=== PATIENT | female | born 1950 | race Caucasian/White ===

== ENCOUNTER 2024-06-23 09:27 | Emergency (ER) | payer MEDICARE, OTHER, SELFPAY ==
[2024-06-23 09:35] VITALS: BP 151/60
[2024-06-23 10:09] LABS: % Basophils 0.8 % (0-2); % Eosinophils 2.4 % (0-6); % Immature Granulocytes 0.1 % (0-0.5); % Lymphocytes 24.5 % (20.5-51.1); % Neutrophils 63.2 % (42.2-75.2); Absolute Basophils 0.1 10^3/uL (0-0.2); Absolute Eosinophils 0.2 10^3/uL (0-0.7); Absolute Lymphocytes 2.2 10^3/uL (1.2-3.4); Absolute Monocytes 0.8 10^3/uL (0.1-0.6); Absolute Neutrophils 5.5 10^3/uL (1.4-6.5); Hemoglobin 14.6 g/dL (12.0-16.0); Mean Corp Hgb Conc. 32.4 g/dL (33.0-37.0); Mean Corpuscular Hgb 29.5 pg (27.0-31.0); Mean Corpuscular Volume 90.9 fL (81.0-99.0); Mean Platelet Volume 11.3 fL (7.4-10.4); Nucleated Red Blood Cells % 0 %; Platelet Count 252 10^3/uL (130-400); Red Blood Cell Count 4.95 10^6/uL (4.20-5.40); White Blood Cell Count 8.8 10^3/uL (4.8-10.8)
[2024-06-23 10:16] LABS: ALT (SGPT) 24 U/L (0-35); AST (SGOT) 31 U/L (14-36); Albumin 4.1 g/dl (3.5-5.0); Alkaline Phosphatase 106 U/L (38-126); Blood Urea Nitrogen 24 mg/dl (7-17); Calcium 9.8 mg/dl (8.4-10.2); Carbon Dioxide 27 mmol/L (22-30); Chloride 106 mmol/L (98-107); Glucose 189 mg/dl (70-99); Lipase 73 U/L (23-300); Sodium 141 mmol/L (135-145); Total Bilirubin 0.9 mg/dl (0.2-1.3); Total Protein 6.9 g/dl (6.3-8.2); eGFR > 60.00
--- NOTE | 2024-06-23 11:16 | ED.GENMED ---
History of Present Illness
General
Chief Complaint: Bowel Problem
Source: patient
Exam Limitations: none
Time Seen by Provider: 06/23/24 11:11
Nursing documentation reviewed up to this point in time: agreed with
History of Present Illness
History of Present Illness:
Patient is a 74-year-old female who complains of constipation for the past month. She reports she has not had a good solid bowel movement for 1 month. She has been taking laxatives magnesium citrate, MiraLAX Colace and even enemas and had little
bits of stool at a time. She was nauseous last night and this morning she denies any vomiting. She had a normal outpatient x-ray at urgent care 10 days ago. She has not seen her family doctor. She had a colonoscopy but years ago and has been
using Cologuard since. She denies any unintended weight loss.
Past History
Past History
ED Past Medical History: None
ED Past Surgical History: None
Social History
Tobacco: Non-smoker
Personal:
Living: with family
Employment: Employed
Review of Systems
Review of Systems
Allergies reviewed?: Yes
All Other Systems: ROS reviewed and negative except as documented in HPI and ROS
Constitutional: Reports no symptoms; Denies fever, fatigue or chills
Respiratory: Reports no symptoms
Cardiac: Reports no symptoms
ABD/GI: Reports abdominal pain, nausea and constipated; Denies vomiting or diarrhea
: Reports no symptoms
Musculoskeletal: Reports no symptoms
Skin: Reports no symptoms
Neurological: Reports no symptoms
Psychiatric: Reports no symptoms
Phy Exam
General Physical Exam
General Presentation: no apparent distress
General age: appears stated age
General Skin: warm and dry
General Habitus: normal
General Mental: alert
General Hydration: appears well hydrated
Gastrointestinal Exam
Gastrointestinal Exam: normal bowel sounds, non tender, soft and other (Recta: No stool in vault )
Neurological Exam
Neurological Exam: alert and oriented x3
Musculoskeletal Exam
Musculoskeletal Exam: full ROM
Skin Exam
Skin Exam: normal color and warm/dry
Psychiatric Exam
Psychiatric Exam: normal mood/affect
Course
Orders/Labs/Results
Orders:
Orders
06/23/24 09:47
Complete Blood Count/With Diff Urgent
Comprehensive Metabolic Panel Urgent
Lipase Urgent
06/23/24 11:19
CT Abd/Pel (IV only)-DH only Urgent
Comment:
Reason For Exam: abd pain/constipation
Abnormal Lab Results
06/23/24
09:47
MCHC 32.4 L g/dL
(33.0-37.0)
MPV 11.3 H fL
(7.4-10.4)
Absolute Monos (auto) 0.8 H 10^3/uL
(0.1-0.6)
BUN 24 H mg/dl
(7-17)
Glucose 189 H mg/dl
(70-99)
06/23/24 09:47
06/23/24 09:47
Vital Signs
Initial and Last Documented VS:
Initial Vital Signs
Temp Pulse Resp BP Pulse Ox
98.3 F 64 16 151/60 100
06/23/24 09:35 06/23/24 09:35 06/23/24 09:35 06/23/24 09:35 06/23/24 09:35
Last Documented Vital Signs
Temp Pulse Resp BP Pulse Ox
98.3 F 64 16 151/60 100
06/23/24 09:35 06/23/24 09:35 06/23/24 09:35 06/23/24 09:35 06/23/24 09:35
MDM/Problems Addressed
Differential Diagnosis Includes:
not limited to:
MDM/Problems Addressed:
As documented patient is a 74-year-old female who presents with constipation for the past month despite laxatives mag citrate MiraLAX and enemas along with stool softener. Patient presents awake alert no acute distress she was nauseous but has had
no vomiting. Abdomen soft nontender no stool in rectum her vitals are stable her labs unremarkable(other than sugar being a little elevated); CAT scan reviewed by radiology negative for significant abnormality mild to moderate diffuse colonic stool
burden. As discussed Case reviewed with ED physician will give patient prescription for polyethylene glycol however will beat higher doses as used in a bowel prep for colonoscopy. This was reviewed with pharmacy.
Will place patient on the GI hotline if she is not seeing GI in years.
Discussed importance of close outpatient GI follow-up and to return if any worsening of symptoms.
*Radiology
Radiology exam reviewed: radiology read reviewed
*Pulse Oximetry
Patient hypoxic: no
*Critical Care Note
Total Time (30-74mins, 75-104mins- exclusive of procedures): Not Applicable
ED Attending Note
-
Portions of this chart may have been created with voice recognition software.� Occasional wrong word or��sound alike� substitutions may have occurred due to the inherent limitations of voice recognition software.
Discharge Plan
Departure
Patient Disposition: Home (Routine Discharge)
Date of Disposition: 06/23/24
Time of Disposition: 14:52
Patient with high blood pressure during this ER visit?: Yes
Discharge Problem:
Constipation
Instructions: Constipation, Adult (DC), BLOOD PRESSURE
Prescriptions:
No Action
biotin 10 mg Tablet
10 mg PO DAILY
diltiazem HCl 180 mg Capsule,Extended Release 24 Hr
180 mg PO DAILY
cetirizine 5 mg Tablet
5 mg PO DAILY
triamterene-hydrochlorothiazid 37.5-25 mg Tablet
1 tab PO DAILY
aspirin 81 mg Tablet
81 mg PO DAILY
zolpidem 10 mg Tablet
10 mg PO DAILY
atorvastatin 40 mg tablet
40 mg PO QPM Qty: 90 10RF
clopidogrel [clopidogrel] 75 mg tablet
75 mg PO DAILY Qty: 90 10RF
nitroglycerin [nitroglycerin] 0.4 mg tablet, sublingual
0.4 mg sublingual [id number] PRN (Reason: chest pain) Qty: 25 5RF
Xarelto 15 mg tablet
15 mg PO QPM Qty: 90 5RF
Referrals:
Cristobal Brumfield MD [Active] -
Angelia Jaime DO [Family Provider] -
Activity Restrictions/Additional Instructions:
As discussed please follow-up with family doctor in the next several days. In addition please follow-up with GI. You may receive a phone call from the GI credit front office developer in the next 1 to 2 days however if you do not please give the office a call to
schedule an appointment. Please use prescriptions for polyethylene glycol as prescribed return if any worsening of symptoms. Make sure you increase your water take and fluid intake.
Increase diet high in fiber fresh fruits and vegetables avoiding constipating foods such as bananas.
Interventions
Interventions:
*Risk Screen - Suicide Last Done: 06/23/24 09:35
*General Assessment Last Done: 06/23/24 11:39
*Neglect/Abuse Screening Last Done: 06/23/24 09:35
*ED- Fall Risk Assessment Last Done: 06/23/24 11:39
*ED COVID-19 Vaccine History Last Done: 06/23/24 11:39
XR-Pdfdeo-Ysdukcrnqz Assessment Last Done: 06/23/24 11:39
Discharge Date and Time
Print Language: TAIWANESE
[2024-06-23 11:39] VITALS: BMI 27.1
[2024-06-23 15:05] VITALS: BP 167/77
[2024-06-23] MEDS: GAVILAX 238 GM PO (15:07)
== END 2024-06-23 15:06 | disposition home or self-care (01) ==
LOC: EMR 09:27
PROVIDERS: EMERGENCY PHYSICIAN Student in an Organized Health Care Education/Training Program; FAMILY PHYSICIAN Family Medicine
DX: K59.00 Constipation, unspecified (principal); R11.0 Nausea
CPT/HCPCS: 99284; 74177; 80053; 83690; 85025; Q9967

== ENCOUNTER 2024-08-24 06:26 | Day surgery (SDC) | payer MEDICARE, OTHER, SELFPAY | END 2024-08-24 13:10 | disposition short-term general hospital (02) | LOC: GI 06:26 | PROVIDERS: ATTENDING PHYSICIAN Student in an Organized Health Care Education/Training Program | DX: K59.04 Chronic idiopathic constipation (principal); R19.4 Change in bowel habit; Z80.0 Family history of malignant neoplasm of digestive organs; R94.31 Abnormal electrocardiogram [ECG] [EKG]; Z53.09 Procedure and treatment not carried out because of other contraindication | CPT/HCPCS: 45378; G0378 ==

== ENCOUNTER 2024-08-24 22:58 | Observation (INO) | payer MEDICARE, OTHER, SELFPAY ==
[2024-08-24] VITALS (12 sets, daily range): BP systolic 132–180; BP diastolic 57–107; BMI 26.9
[2024-08-24 13:57] LABS: Hematocrit 41.1 % (37.0-47.0); Hemoglobin 13.8 g/dL (12.0-16.0); Mean Corp Hgb Conc. 33.6 g/dL (33.0-37.0); Mean Corpuscular Volume 88.0 fL (81.0-99.0); Nucleated Red Blood Cells % 0 %; Platelet Count 217 10^3/uL (130-400); Red Cell Dist. Width 13.7 % (11.5-14.5)
[2024-08-24 14:15] LABS: ALT (SGPT) 31 U/L (0-35); AST (SGOT) 35 U/L (14-36); Albumin 4.2 g/dl (3.5-5.0); Alkaline Phosphatase 116 U/L (38-126); Blood Urea Nitrogen 16 mg/dl (7-17); Calcium 9.3 mg/dl (8.4-10.2); Carbon Dioxide 20 mmol/L (22-30); Chloride 111 mmol/L (98-107); Glucose 98 mg/dl (70-99); Magnesium 2.0 mg/dl (1.6-2.3); Potassium 3.0 mmol/L (3.5-5.1); Sodium 142 mmol/L (135-145); Total Protein 7.0 g/dl (6.3-8.2); eGFR > 60.00
[2024-08-24 14:30] LABS: Troponin I 0.017 ng/ml
--- NOTE | 2024-08-24 14:54 | ED.GENMED ---
History of Present Illness
General
Chief Complaint: Chest Pain
Source: patient
Exam Limitations: none
Time Seen by Provider: 08/24/24 14:38
History of Present Illness
History of Present Illness:
74-year-old female was prepping for a colonoscopy today. In the preop area she felt she went into atrial fibrillation. [place] the irregular heartbeat. Also chest pain to her neck. This is why her atrial fibrillation is present in the past.
Symptoms started a few hours ago. Symptoms are much improved but not resolved. Still feels some chest pressure. No shortness of breath diaphoresis or radiation. Has a known cardiac stent. Stopped her Xarelto 9 months ago.
Past History
Past History
ED Past Medical History: Arrthythmia and HTN
ED Past Surgical History:
Social History
Tobacco: Non-smoker
Personal:
Living: with family
Employment: Employed
Review of Systems
Review of Systems
All Other Systems: Not applicable
Respiratory: Reports no symptoms
Cardiac: Denies syncope
ABD/GI: Reports no symptoms
Phy Exam
Physical Exam
Physical Exam:
GENERAL: Alert and oriented in no apparent distress
EYE: Orbits normal.
NECK: Supple, no thyroid palpable
CARDIAC: Irregular irregular. No murmur
LUNGS: Clear breath sounds,normal
ABDOMEN: Soft, without focal tenderness or distention
NEUROLOGICAL: Alert and oriented , grossly non-focal
SKIN: Warm and dry, no rash or lesion, no discoloration, skin intact.
MUSCULOSKELETAL: No edema,no deformity.Good color
PSYCH: Normal and appropriate interaction.
Scores
Heart Score for Chest Pain Patients
STEMI patient?: No
History: Moderately Suspicious
ECG: Nonspecific Repolarization
Age: >/= 65 years
Risk Factors: >/= 3 Risk Factors or History of CAD
Troponin: >1 - <3 x Normal Limit
Heart Score for Chest Pain Patients: 7
Heart Score Risk: 72.7 % MACE over next 6 weeks
Course
Orders/Labs/Results
Orders:
Orders
08/24/24 13:16
EKG [Electrocardiogram (*1)] Urgent
Reason for Study: Chest Pain
EKG- Treatment ONCE
08/24/24 13:37
Complete Blood Count/With Diff Urgent
Comprehensive Metabolic Panel Urgent
Magnesium Urgent
TSH Reflex To Free T4 Urgent
Troponin I Urgent
08/24/24 14:54
Electrocardiogram (*1) Stat
Reason for Study: Other
Other Reason for Exam: chest pain
EKG- Treatment ONCE
08/24/24 16:34
Potassium Chloride 10% Elixir [KCl Elixir] 40 meq PO NOW STA
08/24/24 16:45
Troponin I Urgent
08/24/24 16:52
Potassium Chloride [KCl] 20 meq 0.9% Sodium Chloride 150 ml [Nss] 150 ml IV NOW
08/24/24 16:57
Diltiazem Extended Release [Cardizem Cd] 120 mg PO NOW STA
08/24/24 20:00
Troponin I Urgent
08/24/24 21:05
Heparin 4,000 units IV NOW STA
Nursing to Place Non Medication Order As Directed
Physician Order: PTT 6 hours after initial start of Heparin infusion
Above order entered?: Yes
08/24/24 21:15
PTT Urgent
Comment: Obtain baseline before beginning heparin infusion if not already collected
Heparin 11126 Units/250 ml 25,000 units in 250 ml IV PER PROTOCOL
Weight to be used for heparin protocol in kilograms (kg):: 81
Protocol:: Cardiac Tx/Acute Coronary
PTT Goal Range to be used:: PTT 73 to 111 seconds
Order type:: Initial
INITIAL Infusion Dose (UNITS/KG/hr) & then follow protocol:: 12 units/kg/hr
Infusion Dose in UNITS/hr & then follow protocol (UNITS/hr):: 950
INFUSION RATE in mL/hr & then follow protocol (mL/hr):: 9.5
PTT less than or equal to 64 seconds:: Increase rate by 200 units/hr (+ 2 mL/hr)
PTT 64.1 to 72.9 seconds:: Increase rate by 100 units/hr (+ 1 mL/hr)
PTT 73 to 111 seconds:: Target Range. No change in rate.
PTT 111.1 to 130.9 seconds:: Decrease rate by 100 units/hr (- 1 mL/hr)
PTT 131 to 199.9 seconds:: HOLD for 1 hr. Then decrease rate by 200 units/hr (- 2 mL/hr)
PTT greater than or equal to 200 seconds:: HOLD for 2 hrs & Notify Provider. Then decrease by 200 units/hr (-
2 mL/hr)
Lab follow-up:: Each change, PTT q6h until 2 consecutive are therapeutic. Then PTT
daily.
08/24/24 22:07
Heparin 26592 Units/250 ml 25,000 units in 250 ml .ROUTE .STK-MED
08/24/24 22:24
Admit/Transfer Patient As Directed
Co-Sign Provider:
Level of Care: Observation services
Assign to:: IVU
Physician / Group: Huang Reveles
Diagnosis: ACS, hypokalemia, chest pain, a-fib
PRN Pain Medication Management As Directed
May give lesser potent ordered pain med per pt: Yes
preference::
Protocol:: Medication orders for pain may be administered in a
manner that supports deferring to patient preference
when the pt is:
- Requesting an ordered lesser potent pain medication.
Least to most potent pain medications are defined
as: acetaminophen < NSAID < tramadol < opioids
(morphine, oxycodone, hydromorphone).
- Requesting a lesser dose of the same medication IF
ORDERED.
- Requesting a less intrusive route of administration
if both routes are prescribed by the provider (PO <
IV).
08/24/24 22:26
Code Status As Directed
Resuscitation Status: Full Code
08/24/24 23:59
Troponin I Q3H
Comment: at admit & Q3H for 3 total including ED draws, obtain ECG with each level
Acetaminophen [Tylenol] 650 mg PO Q4HPRN PRN
08/24/24 23:59
CARDIOLOGY CONSULT Routine
Consulting Provider: Carlos Anderson
Was physician already notified: Yes
Glycohemoglobin (HgbA1c) Routine
Activity As Directed
Activity Level: Ambulate
INT (Intravenous Needle Therapy) As Directed
Comment: maintain peripheral IV access
Intake/ Output As Directed
Frequency: Per unit guidelines
Vital Signs As Directed
Frequency: q4h
Weight As Directed
Frequency: Once
Comment: on admission
08/25/24 04:12
Basic Metabolic Panel IN AM
Cardiovascular Evaluation IN AM
Complete Blood Count/No Diff IN AM
PTT Urgent
Troponin I Q3H
Comment: at admit & Q3H for 3 total including ED draws, obtain ECG with each level
08/25/24 05:59
Electrocardiogram (*1) Q6H
Reason for Study: Chest Pain
Comment: at admission and Q3H for total of 3, to be done with each troponin
08/25/24 Breakfast
NPO
Allow oral meds: Yes
Allow clear liquids: 4hrs prior to procedure
Comment: may have unrestricted clear liquid up to 4 hrs prior to scheduled procedure
08/25/24 06:22
Troponin I Q3H
Comment: at admit & Q3H for 3 total including ED draws, obtain ECG with each level
08/25/24 11:59
Electrocardiogram (*1) Q6H
Reason for Study: Chest Pain
Comment: at admission and Q3H for total of 3, to be done with each troponin
08/25/24 12:00
Aspirin Low Dose EC [Aspir Low (Enteric Coated)] 81 mg PO NOON
Cetirizine HCl [Zyrtec] 10 mg PO NOON
Diltiazem Extended Release [Cardizem Cd] 120 mg PO NOON
Duloxetine Delayed Release [Cymbalta Delayed Release] 30 mg PO NOON
Triamterene/Hctz [Dyazide] 1 capsule PO NOON
08/25/24 22:00
Atorvastatin [Lipitor] 20 mg PO HS
Abnormal Lab Results
08/24/24 08/24/24 08/24/24
13:37 16:45 20:00
WBC 11.6 H 10^3/uL
(4.8-10.8)
MPV 11.5 H fL
(7.4-10.4)
Absolute Neuts (auto) 7.1 H 10^3/uL
(1.4-6.5)
Absolute Lymphs (auto) 3.5 H 10^3/uL
(1.2-3.4)
Absolute Monos (auto) 0.9 H 10^3/uL
(0.1-0.6)
Potassium 3.0 L mmol/L
(3.5-5.1)
Chloride 111 H mmol/L
(98-107)
Carbon Dioxide 20 L mmol/L
(22-30)
Troponin I 0.040 H* D ng/ml 0.089 H* D ng/ml
08/24/24 13:37
08/24/24 13:37
Vital Signs
Initial and Last Documented VS:
Initial Vital Signs
Temp Pulse Resp BP Pulse Ox
98.0 F 137 20 132/75 99
08/24/24 13:25 08/24/24 13:25 08/24/24 13:25 08/24/24 13:25 08/24/24 13:25
Last Documented Vital Signs
Temp Pulse Resp BP Pulse Ox
97.8 F 58 17 160/67 98
08/25/24 12:00 08/25/24 10:51 08/25/24 10:30 08/25/24 10:00 08/25/24 10:30
MDM/Problems Addressed
Differential Diagnosis Includes:
Rate controlled atrial fibrillation that clearly started this morning. Patient self stopped her Xarelto 9 months ago. Her Reyes Vasc score warrants anticoagulation. She is rate controlled. She self converted in the room. From a atrial
fibrillation standpoint patient is stable rate controlled and just needs to restart her Xarelto. However the symptoms were somewhat concerning for anginal issues. With her history of stent we will review with cardiology
*Pulse Oximetry
SaO2: 99
Oxygen Mode of Delivery: Room air
Patient hypoxic: no (99)
*Critical Care Note
Total Time (30-74mins, 75-104mins- exclusive of procedures): Not Applicable
Update Note
Update Note:
Patient has remained stable. No further atrial fibrillation. Troponins have been trending up. Will admit for further workup and evaluation. Will start heparin for possible CAD and for her PAF
ED Attending Note
-
Portions of this chart may have been created with voice recognition software.� Occasional wrong word or��sound alike� substitutions may have occurred due to the inherent limitations of voice recognition software.
Discharge Plan
Departure
Patient Disposition: Admit
Date of Disposition: 08/24/24
Time of Disposition: 20:54
Presentation/result/management discussed w/ accepting MD/DO: Cardiology
Discharge Problem:
PAF, possible coronary artery disease, Hypokalemia, History of cardiac stent
Interventions
Interventions:
*Risk Screen - Suicide Last Done: 08/25/24 00:19
*General Assessment Last Done: 08/24/24 13:25
*Neglect/Abuse Screening Last Done: 08/25/24 00:19
*ED- Fall Risk Assessment Last Done: 08/25/24 00:19
*ED COVID-19 Vaccine History Last Done: 08/25/24 00:19
*Nursing Disposition Last Done: 08/25/24 00:19
ED- Cardiac Assessment Last Done: 08/24/24 21:17
Discharge Date and Time
Discharge Date/Time: 08/25/24 00:20
--- NOTE | 2024-08-24 15:28 | CON.CAR ---
Addendum entered and electronically signed by Todd Daniels MD 08/24/24 16:58:
I saw and examined the patient.
The PLANNING OFFICIAL's note was reviewed and I agree with the note.
Primary sfdc consultant Dr. Wayne Agrawal, [facility]
74-year-old woman with a history of coronary artery disease, LAD stenting 02/2023, medically treated RCA disease, PAF (not currently on anticoagulation, patient's choice), hypertension hypercholesterolemia. Patient was scheduled for colonoscopy
today due to constipation and change in bowel habits. No history of GI bleeding. Prior to colonoscopy patient noted to be in A-fib she had some mild chest discomfort which is typical for her during episodes of A-fib. She was sent over to the ER
heart rate by first EKG was 110 and then patient spontaneously converted back to sinus rhythm. She says duration was about an hour. She says this is common for her when she has episodes of A-fib she has had at least 2 episodes in the last 6
months. It is usual for her to have chest discomfort and some jaw discomfort with A-fib symptoms today were consistent with previous episodes. Of note she normally takes Cardizem but did not take her Cardizem today. Patient now in sinus rhythm
with heart rate in the 60s and currently asymptomatic.
.
Paroxysmal atrial fibrillation
- [id number] 3(female, hypertension and age greater than 65)
- Not on anticoagulation as per patient's choice but patient may reconsider now that she has had recurrent arrhythmia I reviewed issues with GI today they did not feel that there was any GI contraindication to initiating anticoagulation. If patient
is willing I would recommend starting Eliquis 5 mg twice daily
- Continue Cardizem
-Replace potassium.
- Follow-up with Dr. Wayne Agrawal (who I spoke with today he will reassess her as an outpatient)
-If she continues to have recurrent symptomatic atrial fibrillation then additional rhythm control strategies to use can be considered ablation versus antiarrhythmic therapy
.
Chest discomfort.
- Clearly associated with A-fib and consistent with previous episodes.
- Patient does have some ST changes when she is at higher rates with A-fib but symptoms are consistent with prior episodes. Patient has known coronary artery disease which is medically treated.
- At previous dose and assess rates. In the future if she has a different additional heart rate and blood pressure room then further increases in Cardizem can be considered
-Check follow-up troponin if without significant rise and patient remains asymptomatic then would be reasonable to discharge with additional outpatient follow-up with her primary sfdc consultant
.
GI. Reviewed issues with gastroenterology including timing of colonoscopy.
- GI to determine timing of additional testing this will be reassessed as an outpatient.
Original Note:
Consultation
Consultation Request
Date/Time Consultation Requested: 08/24/2024 14:30
Date/Time Consultation Performed: 08/24/2024 15:00
Requesting Provider: Dr. Hurtado
Performing Provider: TIKA Caldera for Dr. Daniels
Reason for Consultation: Chest pain, atrial fibrillation
Medical History
-
Chief Complaint: Irregular heart rhythm
History of Present Illness:
Rena Mendes is a 74-year-old female with coronary artery disease (LAD stent 02/2023), paroxysmal atrial fibrillation (declines oral anticoagulation), hypertension, dyslipidemia, and mild mitral regurgitation who presented today for an outpatient
colonoscopy. Prior to the procedure, she was found to be in atrial fibrillation. She endorsed associated chest pain, jaw pain, and neck pain which was 5/10 in severity. She reports she always gets this discomfort when she goes into atrial
fibrillation. She reports having triggers of alcohol and Stevia will put her into atrial fibrillation. Sometimes she will try a vagal maneuver and it will be successful. She is currently back in sinus rhythm in the emergency department. She
denies chest pain and sinus rhythm.
Past Medical History
Past Medical History: Arrhythmias (paroxysmal atrial fibrillation [declines anticoagulation]), CAD (LAD PCI), HTN, Hypercholesterolemia and Valvular Disease (Mild mitral regurgitation)
Past Surgical History: and Orthopedic
Social History
Tobacco: Former Smoker
Personal:
Living: With Family
Family History
Family History: Reviewed & Not Pertinent
Allergies / Home Medications
Allergy/AdvReac Type Severity Reaction Status Date / Time
No Known Allergies Allergy Verified 08/24/24 13:24
�Medication �Instructions �Recorded �Confirmed �Type
aspirin 81 mg tablet 81 mg PO DAILY 02/19/23 02/19/23 History
atorvastatin 40 mg tablet 40 mg PO QPM #90 tabs 02/19/23 Rx
biotin 10 mg tablet 10 mg PO DAILY 02/19/23 02/19/23 History
cetirizine 5 mg tablet 5 mg PO DAILY 02/19/23 02/19/23 History
clopidogrel 75 mg tablet 75 mg PO DAILY #90 tabs 02/19/23 Rx
diltiazem HCl 180 mg capsule,24 180 mg PO DAILY 02/19/23 02/19/23 History
hr,extended release
nitroglycerin 0.4 mg sublingual 0.4 mg sublingual [id number] PRN 02/19/23 Rx
tablet chest pain #25 tabs
rivaroxaban 15 mg tablet (Xarelto) 15 mg PO QPM #90 tabs 02/19/23 Rx
triamterene 37.5 1 tab PO DAILY 02/19/23 02/19/23 History
mg-hydrochlorothiazide 25 mg tablet
zolpidem 10 mg tablet 10 mg PO DAILY 02/19/23 02/19/23 History
Review of Systems
-
History Source: Patient
All other systems: Negative unless noted
Constitutional: No Symptoms
EENT: No Symptoms
Respiratory: No Symptoms
Cardiac: No Symptoms
Abdomen/GI: No Symptoms
: No Symptoms
Musculoskeletal: No Symptoms
Skin: No Symptoms
Neurological: No Symptoms
Endocrine: No Symptoms
Hematologic/Lymphatic: No Symptoms
Physical Exam
Vital Signs
Temp Pulse Resp BP Pulse Ox
98.0 F 137 20 132/75 99
08/24/24 13:25 08/24/24 13:25 08/24/24 13:25 08/24/24 13:25 08/24/24 14:57
Lab Results
08/24/24 13:37
08/24/24 13:37
Troponin I 0.017 ng/ml 08/24/24 13:37
Physical Exam
General: Well Developed, Well Nourished, No Apparent Distress and Comfortable
HEENT: Normocephalic, Anicteric and Moist Mucous Membranes
Respiratory: Clear and Non Labored Respirations
Cardiac: S1/S2 and Regular Rhythm; Negative Peripheral Edema
Breast: Deferred by me
GI: Soft, Non Tender, Non Distended and Normal Bowel Sounds
Rectal: Deferred by Provider
Genito-urinary: No Costovertebral Tender
Musculoskeletal: No Clubbing, No Cyanosis and No Edema
Skin: Warm and Dry
Neuro: AO x 3
Hematologic/Lymphatic: No Lymphadenopathy
Psych: Calm
Impression / Plan
-
I/P: 74F with coronary artery disease (LAD stent 02/2023), paroxysmal atrial fibrillation (declines oral anticoagulation), hypertension, dyslipidemia, and mild mitral regurgitation who presented today for an outpatient colonoscopy. Prior to the
procedure, she was found to be in atrial fibrillation.
Outpatient sfdc consultant: Dr. Agrawal
Paroxysmal atrial fibrillation
- Back in sinus rhythm
- Oral Anticoagulation: Declined by patient
- [id number]: Score at least 4 (HTN, Vascular disease, age 65-74, female gender)
- TSH 2.90
Chest pain
- Initial troponin stable, 0.017, trend
- She reports chest pain/jaw pain/neck pain is her usual atrial fibrillation symptom
- EKG with inferior and anterolateral ST abnormality while in atrial fibrillation with a heart rate of 110 bpm, resolved in sinus
CAD
- [facility] 02/2023: Stenting of 80% mid LAD. RCA 60% lesion not flow-limiting by [employer] assessment.
- Continue medical management risk factor modification.
Change in bowel habits, colonoscopy cancelled
Hypertension, BP stable
Dyslipidemia, goal LDL <55, per primary sfdc consultant
Data Reviewed
-
EKG: Report Reviewed by me
Medical Tests (Nuc Med, Echo etc): Report Reviewed by me
Labs: Labs Reviewed by me
Old Records: Reviewed
[2024-08-24] MEDS: KCL ELIXIR 40 MEQ PO (16:41)
[2024-08-24] MEDS: CARDIZEM CD 120 MG PO (17:14)
[2024-08-24] MEDS: KCL 160 MEQ IV (17:17)
[2024-08-24 17:22] LABS: Troponin I 0.040 ng/ml
[2024-08-24 20:52] LABS: Troponin I 0.089 ng/ml
--- NOTE | 2024-08-24 21:33 | HPS.HSE ---
Addendum entered and electronically signed by Huang Reveles DO 08/24/24 22:48:
Patient seen and examined independently. Agree with findings and plan as set forth by TIKA Ku.
Patient is a 74y F with PMH significant for ASCVD, PA-Fib and hypertension who presents to ED complaining of palpitations, chest pain, jaw pain and diaphoresis. Patient recently underwent bowel prep for colonoscopy that was planed for today.
She notes nausea at home this AM. She arrived for her colonoscopy and was found to be in A-Fib with RVR on the monitor. She was quite symptomatic with diaphoresis and chest discomfort. Procdure was cancelled and patient was referred to the ED for
further evaluation.
Patient states that her prior episodes of A-Fib have all felt similar - including diaphoresis and chest / jaw pain.
She is currently resting comfortably. She has converted back to NSR and has no active complaints at present.
Patient was monitored in the ED. Unfortunately, her troponin has continued to trend upwards and she will need to be hospitalized overnight for further evaluation.
Ass:
Paroxysmal Atrial Fibrillation with Rapid Ventricular Response
Abnormal Troponin - Concern for ACS
ASCVD
Benign Hypertension
Plan:
Admit for further evaluation and treatment.
IV heparin for now given continued upward trend of troponin.
Follow troponin to peak.
Cardiology evaluation for additional recommendations.
Monitor for any new / recurrent symptoms.
Continue usual outpatient medications.
Original Note:
Family Physician
-
Family Physician: Angelia Jaime
Chief Complaint
-
palpitations, diaphoresis and chest pain
History of Present Illness
Patient is a 74-year-old female with past medical history significant for coronary artery disease (LAD stent 02/2023), paroxysmal atrial fibrillation (declines oral anticoagulation), hypertension, dyslipidemia, and mild mitral regurgitation who
presented to [facility] ED for evaluation of palpitations, diaphoresis and chest pain. Patient reports scheduled colonoscopy today where she had completed a 2-day prep, at arrival she was found to be in a-fib with associated chest pain, diaphoresis and
palpitations. Patient states that when she has an episode of a-fib she gets chest discomfort that sometimes radiates to jaw line and palpitations. She denies having diaphoresis before. She believes this episode was brought on by dehydration from
colonoscopy prep. Patient converted to NSR and symptoms resolved spontaneously. She is not anticoagulated by choice despite risks. Denies any fever, chills, cough or shortness of breath.
Medical History
Past Medical History
Past Medical History: Reports Other
Additional Past Medical History:
coronary artery disease (LAD stent 02/2023)
paroxysmal atrial fibrillation (declines oral anticoagulation)
hypertension
dyslipidemia
mild mitral regurgitation
Past Surgical History: Reports Other
Additional Past Surgical History:
LAD stent 02/2023
x3
Social History
Tobacco: Non-smoker
Alcohol: Occasional
Drug: Marijuana (THC gummies for sleep )
Personal:
Living: With Family
Employment: Retired
Family History
Family History: Other (Brother: CAD with 5 vessel bypass, DM, a-fib; Mother: colon cancer)
Allergies / Home Medications
Allergies reflects when Allergies were last updated in [employer].
Home Medications with original date entered in [employer]
Allergy/Medication List:
Allergies
Allergy/AdvReac Type Severity Reaction Status Date / Time
No Known Allergies Allergy Verified 08/24/24 13:24
Home Medications
triamterene 37.5 mg-hydrochlorothiazide 25 mg tablet 1 tab PO NOON 02/19/23
Elimipure 3 tab PO DAILYPRN PRN constipation 08/24/24
Thc Gummy 1 dose PO HS 08/24/24
aspirin 81 mg tablet,delayed release 81 mg PO NOON 08/24/24
atorvastatin 40 mg tablet 20 mg PO HS 08/24/24
cetirizine 10 mg tablet 10 mg PO NOON 08/24/24
diltiazem HCl 120 mg capsule,24 hr,extended release (Tiadylt ER) 120 mg PO NOON 08/24/24
duloxetine 30 mg capsule,delayed release 30 mg PO NOON 08/24/24
magnesium citrate 2 gummy PO NOON 08/24/24
magnesium hydroxide 400 mg/5 mL oral suspension (Milk of Magnesia) 30 ml PO DAILYPRN PRN constipation 08/24/24
sodium sul 1.479 gram-potas ch 0.188 gram-magnes sul 0.225 gram tablet (Sutab) 0 tab PO PER PKG DIR 08/24/24
Review of Systems
-
Constitutional: Reports No Symptoms
EENT: Reports No Symptoms
Respiratory: Reports No Symptoms
Cardiac: Reports Chest Pain, Diaphoresis and Palpitations
Abdomen/GI: Reports No Symptoms
: Reports No Symptoms
Musculoskeletal: Reports No Symptoms
Skin: Reports No Symptoms
Neurological: Reports No Symptoms
Endocrine: Reports No Symptoms
Hematologic/Lymphatic: Reports No Symptoms
Psych: Reports No Symptoms
Physical Exam
Vital Signs
Vital Signs
Temp Pulse Resp BP Pulse Ox
98.0 F 71 28 164/57 98
08/24/24 13:25 08/24/24 21:15 08/24/24 21:15 08/24/24 21:00 08/24/24 20:30
Physical Exam
General: Well Developed, Well Nourished, No Apparent Distress and Conversant
HEENT: NormoCephalic, Moist mucous membranes and Atraumatic
Respiratory: Clear and Non Labored Respirations
Cardiac: S1/S2 and Regular Rhythm; No Murmur, Rub, Gallop or Peripheral Edema
Breast: Deferred by me
GI: Soft, Non Tender, Non Distended and Normal Bowel Sounds; No Organomegaly
Rectal: Deferred by Provider
Genito-urinary: Deferred by me
Musculoskeletal: No Clubbing, No Cyanosis and No Edema
Skin: Warm and IV/Catheter Site
Neuro: Awake, Alert, AO x 3 and Nonfocal/grossly intact
Psych: Calm and Intact Judgment/Insight
Laboratory Results
-
08/24/24 13:37
08/24/24 13:37
Laboratory Results
Total Bilirubin 0.9 mg/dl (0.2-1.3) 08/24/24 13:37
AST 35 U/L (14-36) 08/24/24 13:37
ALT 31 U/L (0-35) 08/24/24 13:37
Alkaline Phosphatase 116 U/L (38-126) 08/24/24 13:37
Troponin I 0.089 ng/ml H* D 08/24/24 20:00
Data Reviewed
-
CT Scan: Report Reviewed by me (Abd/Pel: 1. No significant acute abnormality identified in the abdomen or pelvis, as described above. 2. Mild to moderate diffuse colonic stool burden may reflect constipation.)
Medical Tests (Nuc Med, Echo, EKG etc): Report Reviewed by me (EKG: NORMAL SINUS RHYTHM NONSPECIFIC ST AND T WAVE ABNORMALITY)
Lab Data: Labs Reviewed by me (WBC 11.6, K+ 3.0, trop 0.017, 0.040, 0.089, )
Impression/Plan
-
IMPRESSION/PLAN:
#chest pain, diaphoresis, palpitations likely 2/2 ACS
WBC 11.6, K+ 3.0, trop 0.017, 0.040, 0.089
EKG: NORMAL SINUS RHYTHM
NONSPECIFIC ST AND T WAVE ABNORMALITY
Abd/Pel CT: 1. No significant acute abnormality identified in the abdomen or pelvis, as described above.
2. Mild to moderate diffuse colonic stool burden may reflect constipation.
- Admit to IVU
- Consult Cardiology
- start heparin gtt
- trend troponin
- NPO at midnight for potential cath in morning
#coronary artery disease
s/p LAD stent 02/2023
#paroxysmal atrial fibrillation
declines oral anticoagulation
- continue aspirin and diltiazem
#hypertension
- continue triamterene-hydrochlorothiazide
#dyslipidemia
- continue atorvastatin
#mild mitral regurgitation
Code status: full code
DVT prophylaxis: heparin gtt
[2024-08-24 21:59] LABS: APTT 27.5 Sec (23.4-35.0)
[2024-08-24] MEDS: HEPARIN 25000 UNITS/250 ML IV (22:12)
[2024-08-24] MEDS: HEPARIN 4000 UNITS IV (22:12)
--- NOTE | 2024-08-24 23:50 | PTCARENOTE ---
Transfer note:
Pt transfer from ED on a stretcher. P ambulated with min ax1 to the bed and BR. Pt cleaned with [facility] wipes, placed in a new gown and provided clean sheets and blankets. Monitor in place. Heparin running. 2nd Iv placed. Pt oriented to the room and use
of the call simon. Plan of care and monitor reviewed with pt. Bed in the lowest position, call simon and belongings within reach, and AAAA.
[2024-08-25] VITALS (13 sets, daily range): BP systolic 133–164; BP diastolic 51–98; BMI 26.9; BMI 26.7
[2024-08-25 01:33] LABS: Troponin I 0.096 ng/ml
[2024-08-25] MEDS: MELATONIN 5 MG PO (03:00)
[2024-08-25 04:32] LABS: Hematocrit 37.7 % (37.0-47.0); Hemoglobin 12.6 g/dL (12.0-16.0); Mean Corp Hgb Conc. 33.4 g/dL (33.0-37.0); Mean Corpuscular Volume 88.5 fL (81.0-99.0); Platelet Count 191 10^3/uL (130-400); Red Cell Dist. Width 14.2 % (11.5-14.5)
[2024-08-25 04:40] LABS: APTT 92.2 Sec (23.4-35.0)
[2024-08-25 04:59] LABS: Blood Urea Nitrogen 16 mg/dl (7-17); Calcium 8.6 mg/dl (8.4-10.2); Carbon Dioxide 22 mmol/L (22-30); Chloride 117 mmol/L (98-107); Estimated Creatinine Clearance 84 ml/min; Glucose 97 mg/dl (70-99); HDL Cholesterol 48 mg/dl; LDL Cholesterol, Calculated 73 mg/dl; Potassium 3.1 mmol/L (3.5-5.1); Sodium 141 mmol/L (135-145); Very Low Density Lipoprotein 15 mg/dl (0-30); eGFR > 60.00
[2024-08-25 05:10] LABS: Troponin I 0.084 ng/ml
[2024-08-25] MEDS: KCL 270 MEQ IV (06:14)
[2024-08-25 07:06] LABS: Troponin I 0.066 ng/ml
--- NOTE | 2024-08-25 08:25 | W.PN.CD ---
Today's Communication / Plan
-
continue diltiazem 120mg daily
OAC: xarelto 20mg daily (patient preference for once daily dosing)
-stop ASA
check echo: if unremarkable, will plan for outpatient stress test
Impression / Plan
-
I/P: 74F with coronary artery disease (LAD stent 02/2023), paroxysmal atrial fibrillation (declines oral anticoagulation), hypertension, dyslipidemia, and mild mitral regurgitation who presented today for an outpatient colonoscopy. Prior to the
procedure, she was found to be in atrial fibrillation.
Outpatient manager data warehouse: Dr. Agrawal
Paroxysmal atrial fibrillation: with A fib with RVR on admission
- Back in sinus rhythm: continue diltiazem 120mg daily
- Oral Anticoagulation: xarelto 20mg daily (patient preference for once daily dosing)
- [id number]: Score at least 4 (HTN, Vascular disease, age 65-74, female gender)
- TSH 2.90
Elevated troponin: acute non-ischemic myocardial injury in setting of A fib with RVR
-peak 0.096
-check echo: if unremarkable, will plan for outpatient stress test
CAD
- [facility] 02/2023: Stenting of 80% mid LAD. RCA 60% lesion not flow-limiting by [employer] assessment.
- Continue medical management risk factor modification.
-single agent Xarelto
Change in bowel habits, colonoscopy cancelled
Hypertension, BP stable
Dyslipidemia, goal LDL <55, per primary manager data warehouse
Physical Exam
Vital Signs/Labs
Vital Signs
Temp Pulse Resp BP Pulse Ox
98.3 F 54 15 145/63 93
08/25/24 08:00 08/25/24 07:00 08/25/24 07:00 08/25/24 06:00 08/25/24 07:00
08/24/24 08/25/24 08/26/24
06:59 06:59 06:59
Actual Weight 79.6 kg
08/25/24 04:12
08/25/24 04:12
APTT 92.2 Sec (23.4-35.0) H 08/25/24 04:12
Magnesium 2.0 mg/dl (1.6-2.3) 08/24/24 13:37
Triglycerides 76 mg/dl (10-149) 08/25/24 04:12
LDL Cholesterol, Calc 73 mg/dl 08/25/24 04:12
VLDL Cholesterol, Calc 15 mg/dl (0-30) 08/25/24 04:12
HDL Cholesterol 48 mg/dl 08/25/24 04:12
LAB Results
08/24/24 08/24/24 08/24/24
13:37 16:45 20:00
Troponin I 0.017 0.040 H* D 0.089 H* D
08/25/24 08/25/24 08/25/24
00:59 04:12 06:22
Troponin I 0.096 H* 0.084 H* 0.066 H*
Physical Exam
Constitutional: No acute distress and Comfortable
EENT: Moist mucous membranes
Cardiovascular: Rhythm & rate is regular, Pedal edema is absent, JVD pressure is normal and Systolic murmur absent
Respiratory: Respiratory effort normal and Lungs clear to auscul.
Neuro/Psych: AO x 3
Data Reviewed
-
Date of Service: August 25, 2024
EKG: Other (Tele: SB 50s)
Labs: Labs Reviewed by me
[2024-08-25 09:45] LABS: Glycohemoglobin (HgbA1c) 5.9 % (4.0-5.6)
[2024-08-25] MEDS: KCL 40 MEQ PO (10:30)
[2024-08-25] MEDS: XARELTO 20 MG PO (10:30)
--- NOTE | 2024-08-25 10:59 | PTCARENOTE ---
pt now in NSR , she was started on Xarelto , echo done at bedside , she is transitioned off of heparin , as per cardiology possible DC later today
--- NOTE | 2024-08-25 12:23 | W.PN.HOSP.TC ---
Today's Communication/Plan
-
Monitor vital signs see plan
Remains in normal sinus rhythm
Replete potassium
Discussed with cardiology, discharge today with outpatient follow-up
Time of discharge 37 minutes
Assessment / Plan
Assessment / Plan
chest pain, diaphoresis, palpitation likely secondary to A-fib with RVR
Likely precipitated by colonoscopy prep resulting in electrolyte disturbance
Discussed with cardiology, echo 08/25 EF 60%. Mild cLVH. Mild TR. Mild MR. Patient denies any chest pain at this time. And now subsequently converted back to normal sinus rhythm. Patient for discharge home today with outpatient cardiology follow-up
for possible stress test. Continue with Cardizem
CHADVASC 4, patient okay to restart Xarelto
Elevated troponin likely nonischemic myocardial injury
Discussed with cardiology, outpatient stress
coronary artery disease
s/p LAD stent 02/2023
Hypokalemia
Replete
paroxysmal atrial fibrillation
Xarelto reason
- Started aspirin stopped, continue diltiazem
hypertension
- continue triamterene-hydrochlorothiazide
dyslipidemia
- continue atorvastatin
prediabetes
Hemoglobin A1c 5.9
Follow-up outpatient with primary care provider
mild mitral regurgitation
Code status: full code
DVT prophylaxis: xarelto
General: Well Developed, Well Nourished, No Apparent Distress and Conversant
HEENT: NormoCephalic, Moist mucous membranes and Atraumatic
Respiratory: Clear and Non Labored Respirations
Cardiac: S1/S2 and Regular Rhythm; No Murmur, Rub, Gallop or Peripheral Edema
GI: Soft, Non Tender, Non Distended and Normal Bowel Sounds
Musculoskeletal: No Edema
Neuro: Awake, Alert, AO x 3 and Nonfocal/grossly intact
Psych: Calm and Intact Judgment/Insight
Anticipated Discharge: Today
Subjective/Interval History
-
Date of Service: August 25, 2024
Denies pain
Objective Data
-
Labs:
Laboratory Results
08/25/24 08/25/24
04:12 10:00
WBC 12.1 H
Hgb 12.6
Hct 37.7
Plt Count 191
APTT 92.2 H Pending
Sodium 141
Potassium 3.1 L
Chloride 117 H
Carbon Dioxide 22
BUN 16
Creatinine 0.6
Glucose 97
Calcium 8.6
Vital Signs:
Vital Signs
Temp Pulse Resp BP Pulse Ox
98.3 F 58 17 160/67 98
08/25/24 08:00 08/25/24 10:51 08/25/24 10:30 08/25/24 10:00 08/25/24 10:30
I&O
08/24/24 08/25/24 08/26/24
06:59 06:59 06:59
Intake Total 126 / 126
Balance 126 / 126
--- NOTE | 2024-08-25 12:32 | W.DCSUMMARY ---
Discharge Summary
Discharge Data
Date of Admission: 08/24/24
Date of Discharge: 08/25/24
-
Pending Results: No
Hospital Course
74-year-old female with past medical history of paroxysmal atrial fibrillation, coronary artery disease, hypertension, hyperlipidemia, mitral regurgitation came to the hospital with chest pain, diaphoresis and palpitation which was likely thought
was secondary to A-fib with RVR. Patient was also severely hypokalemic which continue to improve over time with repletion. Patient was seen by cardiology throughout hospitalization. She also had mild troponin elevation which was likely thought
was likely nonischemic myocardial injury however given her symptoms cardiology recommended patient to follow-up outpatient for stress test. Patient also had an echocardiogram which showed preserved EF. Her symptoms continue to improve once she was
converted to normal sinus rhythm. Given her elevated Reyes Vasc score, cardiology recommended patient to be restarted back on Xarelto.Since her symptoms improved, she was then discharged home with instructions to follow-up with all her physicians
outpatient.
Discharge Plan
-
Patient Disposition: Home (Routine Discharge)
Discharge Diagnosis/Procedures: A-fib with RVR
Hypokalemia
Elevated Troponin
Condition: Fair
Diet: Low Cholesterol
Activity: No restrictions
Driving Restrictions: As prior to admission
Bathing Restrictions: None
Blood Work: BMP later this week or next week with primary care provider
Others Tests: Outpatient stress test with primary hand flatwork finisher.
Referrals:
Wayne Agrawal DO [Non-Admitting Privileges] - in one to two weeks
Angelia Jaime DO [Family Provider, Family Practice] - in less than 1 week
Prescriptions:
New
atorvastatin 40 mg Tablet
40 mg PO HS Qty: 30 0RF
Xarelto 20 mg Tablet
20 mg PO DAILY Qty: 30 0RF
Continued
triamterene-hydrochlorothiazid 37.5-25 mg Tablet
1 tab PO NOON
magnesium hydroxide [Milk of Magnesia] 400 mg/5 mL Suspension
30 ml PO DAILYPRN PRN (Reason: constipation)
diltiazem HCl [Tiadylt ER] 120 mg Capsule,Extended Release 24 Hr
120 mg PO NOON
duloxetine 30 mg Capsule,Delayed Release(Dr/Ec)
30 mg PO NOON
Sutab 1.479-0.188- 0.225 gram Tablet
0 tab PO PER PKG DIR
Patient Comments:
08/24/2024, pt. took 12 tablets the evening before (08/23/2024) and 12 tablets morning of (08/24/2024) her scheduled colonoscopy.
Elimipure
3 tab PO DAILYPRN PRN (Reason: constipation)
Thc Gummy 100 mg
1 dose PO HS
Patient Comments:
08/24/2024, per pt., she takes about 1/8 of a bite of a 100 mg THC gummy every night at bedtime.
magnesium citrate
2 gummy PO NOON
atorvastatin 40 mg tablet
20 mg PO HS
cetirizine 10 mg Tablet
10 mg PO NOON
Discontinued
aspirin 81 mg Tablet,Delayed Release (Dr/Ec)
81 mg PO NOON
Discharge Orders:
Discharge Patient (As Directed); Ordered 08/25/24
Ordered By: Gonsalo Woodruff
Discharge Date and Time
Discharge Date/Time: 08/25/24 13:30
Print Language: SLOVAK
[2024-08-25] MEDS: CARDIZEM CD 120 MG PO (12:43)
[2024-08-25] MEDS: ZYRTEC 10 MG PO (12:43)
[2024-08-25] MEDS: CYMBALTA DELAYED RELEASE 30 MG PO (12:43)
[2024-08-25] MEDS: DYAZIDE 1 CAPSULE PO (12:43)
--- NOTE | 2024-08-25 13:21 | PTCARENOTE ---
pt written for DC , IV s removed , DC instructions given , both patient and given DC instructions and verbalized understanding
--- NOTE | 2024-08-25 13:31 | CM ---
Initial assessment completed with patient who lives with her in a 2 story plus basement home with B/B on 2nd and 1/2 bath on 1st, no steps to enter. 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 Patient does have a SPC in the
home but does not use. No HC-POA. No service. PCP is Angelia Jaime and Pharmacy is [facility] on [address] in [facility]. Discharge POC: Home with no needs.
--- NOTE | 2024-08-25 13:38 | CM ---
Addendum entered by Romy Cordon 08/25/24 13:42:
IMM signed within 48 hour time frame of admission.
Original Note:
Patient has been medically cleared for discharge to home with no additional skilled services. Patient has arranged for transport home.
== END 2024-08-25 13:30 | disposition home or self-care (01) ==
LOC: ICU 22:58
PROVIDERS: Nurse Practitioner Family; Student in an Organized Health Care Education/Training Program; ADMITTING PHYSICIAN Hospitalist; ATTENDING PHYSICIAN Internal Medicine; EMERGENCY PHYSICIAN Emergency Medicine; FAMILY PHYSICIAN Family Medicine; OTHER PHYSICIAN Internal Medicine Cardiovascular Disease
DX: I48.0 Paroxysmal atrial fibrillation (principal); I10 Essential (primary) hypertension; E78.00 Pure hypercholesterolemia, unspecified; I08.1 Rheumatic disorders of both mitral and tricuspid valves; I25.10 Atherosclerotic heart disease of native coronary artery without angina pectoris; E87.6 Hypokalemia; R73.03 Prediabetes; R79.89 Other specified abnormal findings of blood chemistry; Z79.01 Long term (current) use of anticoagulants; Z82.49 Family history of ischemic heart disease and other diseases of the circulatory system; Z87.891 Personal history of nicotine dependence; Z95.5 Presence of coronary angioplasty implant and graft
CPT/HCPCS: 80048; 80053; 80061; 83036; 83735; 84443; 84484; 85025; 85027; 85730; 93005; 93306; 99285; G0378